=== PATIENT | male | born 1980 | race Caucasian/White ===

== ENCOUNTER 2017-06-29 16:21 | Emergency (ER) | payer MEDICAID ==
[~2017-06-29] VITALS: Ht 200.7 cm; Wt 81.2 kg
[2017-06-29 16:22] VITALS: BP 138/78
[2017-06-29] MEDS ORDERED: LIDOCAINE 1%, 20ML SQ ONE (16:30)
[2017-06-29] MEDS ORDERED: PLEASE ENTER HEIGHT AND WEIGHT MC SCH (17:00)
[2017-06-29] MEDS ORDERED: PLEASE ENTER ALLERGIES MC SCH ×2 (17:00)
== END 2017-06-29 17:06 | disposition home or self-care (01) ==
LOC: ED 17:00
DX: L02.415 Cutaneous abscess of right lower limb (principal)
CPT/HCPCS: 10060; 99283; J3490

== ENCOUNTER 2017-07-09 08:57 | Emergency (ER) | payer MEDICAID ==
[~2017-07-09] VITALS: Ht 200.7 cm; Wt 83.6 kg
[2017-07-09 09:03] VITALS: BP 135/90
[2017-07-09] MEDS ORDERED: LIDOCAINE 1%, 10ML ONE (10:59)
[2017-07-09] MEDS ORDERED: LIDOCAINE 1%, 20ML SQ ONE (11:00)
== END 2017-07-09 11:44 | disposition home or self-care (01) ==
LOC: ED 11:16
DX: L02.214 Cutaneous abscess of groin (principal)
CPT/HCPCS: 10060

== ENCOUNTER 2017-07-11 20:48 | Emergency (ER) | payer MEDICAID ==
[~2017-07-11] VITALS: Ht 200.7 cm; Wt 85.9 kg
[2017-07-11 21:56] VITALS: BP 125/79
[2017-07-11] MEDS ORDERED: IBUPROFEN 200 MG TABLET PO ONE (22:30)
[2017-07-11] MEDS ORDERED: BACITRACIN ZINC OINT 500U/GM, 0.9 GM ONE (22:40)
[2017-07-11] MEDS ORDERED: IBUPROFEN 200 MG TABLET ONE (22:55)
== END 2017-07-11 23:03 | disposition home or self-care (01) ==
LOC: ED 22:08
DX: L02.211 Cutaneous abscess of abdominal wall (principal)
CPT/HCPCS: 99283

== ENCOUNTER 2017-08-10 21:17 | Emergency (ER) | payer MEDICAID ==
[~2017-08-10] VITALS: Ht 203.2 cm; Wt 85.0 kg
[2017-08-10 22:32] LABS: RAPID INFLUENZA A Negative (Negative); RAPID INFLUENZA B Negative (Negative)
[2017-08-10 22:35] VITALS: BP 147/82
== END 2017-08-10 23:18 | disposition home or self-care (01) ==
LOC: ED 21:56
DX: J20.9 Acute bronchitis, unspecified (principal); B96.89 Other specified bacterial agents as the cause of diseases classified elsewhere
CPT/HCPCS: 71046; 87400; 93005; 99285

== ENCOUNTER 2018-01-21 09:07 | Emergency (ER) | payer MEDICAID ==
[~2018-01-21] VITALS: Ht 203.2 cm; Wt 88.2 kg
[2018-01-21 09:10] VITALS: BP 146/93
== END 2018-01-21 10:25 | disposition home or self-care (01) ==
LOC: ED 10:14
DX: L03.111 Cellulitis of right axilla (principal); L02.411 Cutaneous abscess of right axilla
CPT/HCPCS: 99283

== ENCOUNTER 2018-01-22 20:46 | Emergency (ER) | payer MEDICAID ==
[~2018-01-22] VITALS: Ht 203.2 cm; Wt 86.8 kg
[2018-01-22 20:51] VITALS: BP 123/82
[2018-01-22] MEDS ORDERED: LIDOCAINE-MPF 2% ,5ML ONE (21:51)
[2018-01-22] MEDS ORDERED: BENZOCAINE 20% SPRAY 0.5ML ONE (21:51)
[2018-01-22] MEDS ORDERED: LIDOCAINE 2%, 10ML INFIL ONE (22:00)
[2018-01-22] MEDS ORDERED: BENZOCAINE 20% SPRAY 0.5ML TP ONE (22:00)
== END 2018-01-22 22:40 | disposition home or self-care (01) ==
LOC: ED 22:35
DX: L02.411 Cutaneous abscess of right axilla (principal); L73.2 Hidradenitis suppurativa
CPT/HCPCS: 10060; 99283; J3490

== ENCOUNTER 2018-01-27 09:38 | Emergency (ER) | payer MEDICAID ==
[~2018-01-27] VITALS: Ht 203.2 cm; Wt 87.1 kg
[2018-01-27 09:45] VITALS: BP 145/89
[2018-01-27] MEDS ORDERED: BACITRACIN ZINC OINT 500U/GM, 0.9 GM ONE (10:14)
== END 2018-01-27 10:40 | disposition home or self-care (01) ==
LOC: ED 10:03
DX: L02.411 Cutaneous abscess of right axilla (principal); F17.200 Nicotine dependence, unspecified, uncomplicated
CPT/HCPCS: 99283

== ENCOUNTER 2018-02-07 08:51 | Emergency (ER) | payer MEDICAID ==
[~2018-02-07] VITALS: Ht 203.2 cm; Wt 89.0 kg
[2018-02-07 08:58] VITALS: BP 116/76
[2018-02-07] MEDS ORDERED: ONDANSETRON ODT 4 MG ONE (09:20)
[2018-02-07] MEDS ORDERED: DIPHENHYDRAMINE 25 MG CAPSULE ONE (09:20)
[2018-02-07 09:24] LABS: BASOPHILS # (AUTO) 0.03 x10^3/uL (0-0.1); BASOPHILS % (AUTO) 1 % (0-1); EOSINOPHILS # (AUTO) 0.18 x10^3/uL (0-0.4); EOSINOPHILS % (AUTO) 4 % (1-7); LYMPHOCYTES # (AUTO) 1.63 x10^3/uL (1-3.4); LYMPHOCYTES % (AUTO) 38 % (22-44); MD NO; MEAN CORPUSCULAR HEMOGLOBIN 31.3 pg (27.5-34.5); MEAN CORPUSCULAR HGB CONC 34.3 g/dL (33.2-36.2); MEAN CORPUSCULAR VOLUME 91.2 fL (81-97); MEAN PLATELET VOLUME 7.9 fL (7.4-10.4); MONOCYTES % (AUTO) 17 % (2-9); NEUTROPHILS # (AUTO) 1.71 x10^3/uL (1.8-6.8); NEUTROPHILS % (AUTO) 40 % (42-75); PLATELET COUNT 213 x10^3/uL (130-400); RED BLOOD COUNT 4.95 x10^6/uL (4.38-5.82); RED CELL DISTRIBUTION WIDTH 12.5 % (9.4-14.8)
[2018-02-07] MEDS ORDERED: DIPHENHYDRAMINE 25 MG CAPSULE PO ONE (09:30)
[2018-02-07] MEDS ORDERED: ONDANSETRON ODT 4 MG PO ONE (09:30)
[2018-02-07 09:35] LABS: ALANINE AMINOTRANSFERASE 20 U/L (12-78); ALBUMIN 3.7 g/dL (3.4-5.0); ANION GAP 9 mmol/L (5-15); CALCIUM 8.2 mg/dL (8.5-10.1); CHLORIDE 111 mmol/L (98-107); CREATININE 1.25 mg/dL (0.7-1.3)
[2018-02-07 09:38] LABS: ALKALINE PHOSPHATASE 41 U/L (45-117); BILIRUBIN,TOTAL 0.5 mg/dL (0.2-1.0); TOTAL PROTEIN 6.2 g/dL (6.4-8.2)
== END 2018-02-07 10:13 | disposition home or self-care (01) ==
LOC: ED 10:07
DX: J00 Acute nasopharyngitis [common cold] (principal); R11.2 Nausea with vomiting, unspecified; R10.84 Generalized abdominal pain; Z88.6 Allergy status to analgesic agent; Z88.2 Allergy status to sulfonamides
CPT/HCPCS: 36415; 80053; 83690; 85025; 99284; Q0162; Q0163

== ENCOUNTER 2018-02-12 21:28 | Emergency (ER) | payer MEDICAID ==
[~2018-02-12] VITALS: Ht 203.2 cm; Wt 85.6 kg
[2018-02-12 21:32] VITALS: BP 132/86
[2018-02-12] MEDS ORDERED: CLINDAMYCIN 300 MG CAPSULE ONE (22:11)
[2018-02-12] MEDS ORDERED: CLINDAMYCIN 300 MG CAPSULE PO ONE (22:30)
== END 2018-02-12 22:24 | disposition home or self-care (01) ==
LOC: ED 22:00
DX: L03.113 Cellulitis of right upper limb (principal); L02.413 Cutaneous abscess of right upper limb
CPT/HCPCS: 99283

== ENCOUNTER 2018-02-14 17:52 | Emergency (ER) | payer MEDICAID ==
[~2018-02-14] VITALS: Ht 203.2 cm; Wt 87.0 kg
[2018-02-14 17:55] VITALS: BP 115/72
[2018-02-14] MEDS ORDERED: LIDOCAINE 2%, 20ML SQ ONE (20:00)
[2018-02-14] MEDS ORDERED: LIDOCAINE-MPF 2%, 2ML ONE (20:10)
== END 2018-02-14 20:28 | disposition home or self-care (01) ==
LOC: ED 20:00
DX: L02.413 Cutaneous abscess of right upper limb (principal); F17.200 Nicotine dependence, unspecified, uncomplicated
CPT/HCPCS: 10060; 99283

== ENCOUNTER 2019-11-24 13:20 | Emergency (ER) | payer MEDICAID ==
[~2019-11-24] VITALS: Ht 203.2 cm; Wt 82.2 kg
[2019-11-24] MEDS ORDERED: LORazepam 1MG TABLET PO ONE (13:30)
[2019-11-24] MEDS ORDERED: KETOROLAC 30 MG/1 ML IM ONE (13:30)
--- NOTE | 2019-11-24 13:36 | NUR ---
BIB [facility] FROM BUS STOP. PT C/O LEFT CHEST CP AND LEFT SHOULDER PAIN 01/23 STARTING ABOUT 1230 TODAY. [employer] [facility]: PIV 18G RIGHT WRIST, 324 ASA, 250ML NS. PT AMBULATED WITH STEADY GAIT FROM [facility] TO [facility]. PT CONNECTED TO MONITORING. CALL LIGHT IN REACH. LAB AND XRAY AT BEDSIDE. PT STATES LAST METH USE TWO DAYS AGO. PT TEXTING ON PHONE, BUT ANSWERING QUESTIONS WHEN ASKED.
[2019-11-24] MEDS ORDERED: KETOROLAC 30 MG/1 ML ONE (13:47)
[2019-11-24] MEDS ORDERED: LORazepam 1MG TABLET ONE (13:48)
[2019-11-24 13:49] LABS: BASOPHILS # (AUTO) 0.02 x10^3/uL (0-0.1); BASOPHILS % (AUTO) 1 % (0-1); EOSINOPHILS # (AUTO) 0.06 x10^3/uL (0-0.4); EOSINOPHILS % (AUTO) 1 % (1-7); LYMPHOCYTES # (AUTO) 1.11 x10^3/uL (1-3.4); LYMPHOCYTES % (AUTO) 26 % (22-44); MD NO; MEAN CORPUSCULAR HEMOGLOBIN 30.3 pg (27.5-34.5); MEAN CORPUSCULAR HGB CONC 33.5 g/dL (33.2-36.2); MEAN CORPUSCULAR VOLUME 90.5 fL (81-97); MEAN PLATELET VOLUME 7.1 fL (7.4-10.4); MONOCYTES # (AUTO) 0.52 x10^3/uL (0.2-0.8); MONOCYTES % (AUTO) 12 % (2-9); NEUTROPHILS # (AUTO) 2.63 x10^3/uL (1.8-6.8); NEUTROPHILS % (AUTO) 61 % (42-75); PLATELET COUNT 270 x10^3/uL (130-400); RED BLOOD COUNT 5.55 x10^6/uL (4.38-5.82); RED CELL DISTRIBUTION WIDTH 13.3 % (9.4-14.8)
--- NOTE | 2019-11-24 13:50 | NUR ---
RECEIVED VERBAL ORDER, OK TO CHANGE TORADOL FROM IM TO IV PUSH. ORDER CHANGED.
--- NOTE | 2019-11-24 13:55 | NUR ---
MEDS ADMIN PER SEP. PT RESTING COMFORTABLY ON GURREADING. TJ.
[2019-11-24 13:57] LABS: ALBUMIN 3.9 g/dL (3.4-5.0); ANION GAP 7 mmol/L (5-15); CALCIUM 8.8 mg/dL (8.5-10.1); CHLORIDE 109 mmol/L (98-107)
[2019-11-24 13:58] VITALS: BP 133/94
[2019-11-24] MEDS ORDERED: KETOROLAC 30 MG/1 ML IVPush ONE (14:00)
[2019-11-24 14:01] LABS: TROPONIN I < 0.015 ng/mL (0.000-0.045)
--- NOTE | 2019-11-24 14:14 | NUR ---
ALL RESULTS ARE BACK AT THIS TIME. CHART UP FOR RECHECK.
== END 2019-11-24 15:35 | disposition home or self-care (01) ==
LOC: ED 14:46
DX: M94.0 Chondrocostal junction syndrome [Tietze] (principal); R06.02 Shortness of breath; R94.31 Abnormal electrocardiogram [ECG] [EKG]
CPT/HCPCS: 36415; 71046; 80048; 82040; 84484; 85025; 93005; 96374; 99285; J1885

== ENCOUNTER 2020-02-10 12:42 | Inpatient (IN) | payer MEDICAID ==
[~2020-02-10] VITALS: Ht 203.2 cm; Wt 91.3 kg
[2020-02-10] MEDS ORDERED: SODIUM CHLORIDE 0.9%, 500ML IVBOLUS ONE ×2 (13:30→15:30)
[2020-02-10] MEDS ORDERED: PIPERACILLIN/TAZO/PMX 3.375GM 50 ML IVPB ONE (13:30)
[2020-02-10] MEDS ORDERED: VANCOMYCIN PER PHARMACY MC ONE (13:30)
[2020-02-10] MEDS ORDERED: SODIUM CHLORIDE FLUSH 10ML SYR IVF ONE (13:30)
--- NOTE | 2020-02-10 13:50 | NUR ---
PT NOT IN ROOM. UNKNOWN IF PT ELOPED.
--- NOTE | 2020-02-10 14:02 | NUR ---
PT CAME BACK TO ER, THROUGH LOBBY. PT BACK IN ROOM LAYING IN BED.
[2020-02-10] MEDS ORDERED: PIPERACILLIN/TAZO/PMX 3.375GM 50 ML ONE (14:05)
--- NOTE | 2020-02-10 14:13 | NUR ---
BLOOD CULTURES BEING DRAWN AT THIS TIME. WILL START IV AND MEDS AFTER LAB PER PT REQUEST.
[2020-02-10] MEDS ORDERED: VANCOMYCIN 2,000 MG in SODIUM CHLORIDE 0.9% 500 ML IV ONE (14:30)
[2020-02-10 14:35] LABS: HCT (SEDRATE) 44.5 % (39.2-51.8)
[2020-02-10 14:36] LABS: MEAN CORPUSCULAR HGB CONC 34.1 g/dL (33.2-36.2); MEAN PLATELET VOLUME 7.4 fL (7.4-10.4); PLATELET COUNT 256 x10^3/uL (130-400); RED BLOOD COUNT 4.96 x10^6/uL (4.38-5.82); RED CELL DISTRIBUTION WIDTH 13.1 % (9.4-14.8)
[2020-02-10 14:46] LABS: ALBUMIN 3.6 g/dL (3.4-5.0); ANION GAP 9 mmol/L (5-15); CALCIUM 8.5 mg/dL (8.5-10.1); CHLORIDE 107 mmol/L (98-107)
[2020-02-10 14:51] LABS: ALANINE AMINOTRANSFERASE 26 U/L (12-78); ALKALINE PHOSPHATASE 38 U/L (45-117); BILIRUBIN,TOTAL 0.7 mg/dL (0.2-1.0); CREATININE 1.38 mg/dL (0.7-1.3); TOTAL PROTEIN 6.4 g/dL (6.4-8.2)
[2020-02-10 15:01] LABS: BASOPHILS # (AUTO) 0.02 x10^3/uL (0-0.1); BASOPHILS % (AUTO) 0 % (0-1); EOSINOPHILS # (AUTO) 0.06 x10^3/uL (0-0.4); EOSINOPHILS % (AUTO) 0 % (1-7); LYMPHOCYTES # (AUTO) 0.75 x10^3/uL (1-3.4); LYMPHOCYTES % (AUTO) 3 % (22-44); MD SCAN; MONOCYTES # (AUTO) 1.41 x10^3/uL (0.2-0.8); MONOCYTES % (AUTO) 6 % (2-9); NEUTROPHILS # (AUTO) 22.47 x10^3/uL (1.8-6.8); NEUTROPHILS % (AUTO) 91 % (42-75)
--- NOTE | 2020-02-10 15:08 | NUR ---
2ND ABX MISTI. PT INFORMED OF PLAN AT THIS TIME. NO COMPLAINTS AT THIS TIME. WILL CONTINUE TO MONITOR.
[2020-02-10] MEDS: SODIUM CHLORIDE 0.9% 1,000 ML IV SCH ×2 (15:32→20:12)
[2020-02-10] MEDS ORDERED: OMNIPAQUE 350 MG/ML, 100ML BOTTLE ONE (15:55)
[2020-02-10] MEDS ORDERED: ACETAMINOPHEN 325 MG TABLET PO PRN (16:00)
[2020-02-10] MEDS ORDERED: LABETALOL 5MG/ML, 20ML IVPush PRN (16:00)
[2020-02-10] MEDS ORDERED: hydrALAzine 20 MG/ML, 1ML IVPush PRN (16:00)
[2020-02-10] MEDS ORDERED: SODIUM CHLORIDE 0.9% 500 ML IV ONE (16:00)
[2020-02-10] MEDS ORDERED: morphine SULFATE 10 MG/ML, 1ML IVPush PRN (16:00)
[2020-02-10] MEDS ORDERED: PROMETHAZINE 25 MG/ML, 1ML IM PRN (16:00)
[2020-02-10] MEDS ORDERED: NICOTINE 14MG/24 HR PATCH.TD24 TD SCH (16:00)
[2020-02-10] MEDS: HEPARIN 5,000 UNITS/ML, 1ML SQ SCH ×2 (16:00)
[2020-02-10] MEDS ORDERED: ONDANSETRON 2MG/ML, 2ML IVPush PRN (16:00)
--- NOTE | 2020-02-10 16:14 | NUR ---
REPORT TO ALDEN KELLER
[2020-02-10] MEDS ORDERED: MORPHINE SULFATE 4 MG/ML, 1ML ONE (16:18)
[2020-02-10] MEDS: HYDROcodone/APAP 5/325 TABLET PO PRN (17:06)
[2020-02-10 17:19] VITALS: BP 120/83
[2020-02-10 18:40] VITALS: BP 118/77
[2020-02-10] MEDS: PIPERACILLIN/TAZO/PMX 3.375GM 50 ML IV SCH (20:12)
[2020-02-10 20:19] VITALS: BP 117/80
[2020-02-10] MEDS: LINEZOLID PMX 600MG/300ML 300 ML IV SCH (20:56)
[2020-02-11 00:13] VITALS: BP 119/82
[2020-02-11] MEDS: HYDROcodone/APAP 5/325 TABLET PO PRN (02:35)
[2020-02-11] MEDS: PIPERACILLIN/TAZO/PMX 3.375GM 50 ML IV SCH ×2 (02:37→07:55)
[2020-02-11 03:58] LABS: AMPHETAMINE SCREEN, URINE Positive (Negative); BARBITURATE SCREEN, URINE Negative (Negative); BENZODIAZEPINE SCREEN, URINE Negative (Negative); CANNABINOID SCREEN, URINE Negative (Negative); COCAINE SCREEN, URINE Negative (Negative); METHADONE SCREEN, URINE Negative (Negative); OPIATE SCREEN, URINE Positive (Negative)
[2020-02-11 07:10] VITALS: BP 117/77
[2020-02-11] MEDS: LINEZOLID PMX 600MG/300ML 300 ML IV SCH ×2 (07:55→08:59)
[2020-02-11] MEDS: HEPARIN 5,000 UNITS/ML, 1ML SQ SCH (08:00)
== END 2020-02-11 10:18 | disposition left against medical advice (07) | DRG 871 ==
LOC: ED 15:04 → EDIP 15:05 → ED 15:55 → 3N 17:06
PROVIDERS: ADMIT Internal Medicine; ATTEND Internal Medicine
DX: A41.9 Sepsis, unspecified organism (principal); N17.0 Acute kidney failure with tubular necrosis; L02.414 Cutaneous abscess of left upper limb; L03.114 Cellulitis of left upper limb; F19.10 Other psychoactive substance abuse, uncomplicated; R73.9 Hyperglycemia, unspecified; Z53.29 Procedure and treatment not carried out because of patient's decision for other reasons; Z20.828 Contact with and (suspected) exposure to other viral communicable diseases; Z87.891 Personal history of nicotine dependence
CPT/HCPCS: 36415; 80053; 80307; 83605; 85025; 85651; 87040; 87635; 93005; 96365; 96375; G0378; J2020; J2543; J2550; J3370; Q9967; J2270; J7030; J7040